=== PATIENT | female | born 1950 | race Caucasian/White ===

== ENCOUNTER 2018-10-05 16:08 | Emergency (ER) | payer SELFPAY ==
[2018-10-05 16:45] VITALS: BP 132/72
--- NOTE | 2018-10-05 17:00 | UC ---
UC General HPI - HPI Summary HPI Summary: PT IS C/O A "STAPH INFECTION" TO THE BACK OF HER LEFT THIGH X 3 DAYS. HX SAME TWICE BEFORE AND RESOLVED WITH ANTIBIOTICS. DENIES HX MRSA. NO FEVER OR CHILLS. - History of Current Complaint Chief Complaint: UCSkin Stated Complaint: LT LEG COMPLAINT Time Seen by Provider: 10/05/18 16:54 Hx Obtained From: Patient Onset/Duration: Gradual Onset Timing: Constant Pain Intensity: 1 Associated Signs & Symptoms: Negative: Fever - Allergy/Home Medications Allergies/Adverse Reactions: Allergies Allergy/AdvReac Type Severity Reaction Status Date / Time amoxicillin Allergy Rash Verified 10/05/18 16:45 Home Medications: Home Medications Citalopram TAB* [CeleXA TAB*] 20 mg PO DAILY 10/05/18 [History Confirmed ] Naproxen [Naprosyn 500 mg tab] 500 mg PO DAILY 10/05/18 [History Confirmed 10/05] PMH/Surg Hx/FS Hx/Imm Hx - Additional Past Medical History Additional PMH: SKIN INFECTION X 2. - Surgical History Surgical History: Yes Surgery Procedure, Year, and Place: Hysterectomy - Family History Known Family History: Positive: Non-Contributory - Social History Alcohol Use: None Substance Use Type: None Smoking Status (MU): Never Smoked Tobacco Review of Systems All Other Systems Reviewed And Are Negative: No Constitutional: Negative: Fever, Chills, Fatigue Skin: Positive: Rash - L thigh Gastrointestinal: Negative: Vomiting, Nausea Musculoskeletal: Negative: Myalgia Physical Exam Triage Information Reviewed: Yes Appearance: Well-Appearing Vital Signs: Initial Vital Signs Temp 97.8 F 10/05/18 16:37 Pulse 84 10/05/18 16:37 Resp 17 10/05/18 16:37 BP 132/72 10/05/18 16:37 Pulse Ox 97 10/05/18 16:37 Vital Signs Reviewed: Yes Eyes: Positive: Conjunctiva Clear Respiratory: Positive: No respiratory distress Cardiovascular: Positive: RRR Abdomen Description: Positive: Other: - No inguinal adenopathy. Musculoskeletal: Positive: ROM Intact Neurological: Positive: Alert Psychological: Positive: Age Appropriate Behavior Skin Exam: Normal Skin: Positive: Rashes - L posterior mid thigh has a 6cm area of oval erythema, warmth and mild swelling. No fluctuance or streaking. Not a bullseye. Course/Dx - Course [place] been advised to return here for the recheck and go to ER for any worsening. - Diagnoses Provider Diagnosis: Cellulitis Discharge - Sign-Out/Discharge Documenting (check all that apply): Patient Departure All imaging exams completed and their final reports reviewed: No Studies - Discharge Plan Condition: Stable Disposition: HOME Prescriptions: Cephalexin CAP* [Keflex CAP*] 500 mg PO TID 10 Days #30 cap Patient Education Materials: Cellulitis (DC) Referrals: No Primary Care Phys,NOPCP [Primary Care Provider] - Additional Instructions: RETURN IN 2-3 DAYS FOR A RECHECK. GO TO THE ER FOR WORSENING. - Billing Disposition and Condition Condition: STABLE Disposition: Home - Attestation Statements Provider Attestation: Per institutional requirements, I have reviewed the chart, however, I was not consulted specifically or made aware of this patient by the midlevel provider. I did not personally evaluate, interact with , or disposition this patient.
== END 2018-10-05 17:18 | disposition home or self-care (01) ==
LOC: UCCORT 16:08
DX: L03.116 Cellulitis of left lower limb (principal); Z88.0 Allergy status to penicillin
CPT/HCPCS: 99202; G0463